=== PATIENT | male | born 1945 | race Caucasian/White ===

== ENCOUNTER 2017-12-06 14:45 | Day surgery (SDC) | payer BC ==
[2017-12-06] MEDS ORDERED: NS 500 ML IV ONE (14:46)
[2017-12-06] MEDS ORDERED: fentaNYL 100 MCG/2 ML INJ IVP ONE (14:46)
[2017-12-06] MEDS ORDERED: ATROPINE SULFATE 1 MG/10 ML SYR IVP ONE (14:46)
[2017-12-06] MEDS ORDERED: MIDAZOLAM 2 MG/2 ML VIAL IVP ONE (14:46)
[2017-12-06 15:42] LABS: INR 1.16 (0.83-1.16)
--- NOTE | 2017-12-06 15:50 | PDANEPAE ---
ANE History of Present Illness GERSON CV ANE Past Medical History - Cardiovascular History Hx Arrhythmias: Yes - Pulmonary History Hx Oxygen in Use at Home: No Hx Sleep Apnea: No - Endocrine History Hx Diabetes: No - Other Health History Other Health History: ED - Chronic Pain History Chronic Pain: No ANE Review of Systems Review of Systems: SOB with stairs ANE Patient History - Allergies Allergies/Adverse Reactions: No Known Allergies Allergy (Unverified 12/29/15 09:27) - Home Medications Home medications: home medication list seen and reviewed Home Medications: Amiodarone HCl [Pacerone (*)] 200 mg PO DAILY 12/29/15 [Last Taken 04/07/16] Aspirin [Aspirin 81mg (*)] 81 mg PO HS 12/29/15 [Last Taken 04/13/16] Atorvastatin Calcium [Lipitor 40 mg (*)] 40 mg PO HS 12/29/15 [Last Taken 2 Days Ago ~04/12/16] Tadalafil [Cialis] 20 mg PO DAILY PRN 12/29/15 [Last Taken Unknown] Apixaban [Eliquis] 5 mg PO BID 04/14/16 [Last Taken 04/11/16 21:00] Omeprazole [Prilosec 20 mg] 20 mg PO DAILY 04/14/16 [Last Taken 04/13/16] - NPO status NPO Status: no food or drink >8 hours - Anes Hx Anes Hx: no prior problems - Smoking Hx Smoking Status: Never smoked - Family Anes Hx Family Anes Hx: none ANE Labs/Vital Signs - Labs Result Diagrams: 12/06/17 15:05 - Vital Signs Vital Signs: reviewed preoperatively; see RN documention for details Height: 193.04 cm Weight: 81.647 kg ANE Physical Exam - Airway Neck exam: FROM Mallampati Score: Class 1 Mouth exam: normal dental/mouth exam - Pulmonary Pulmonary: no respiratory distress - Cardiovascular Cardiovascular: irregularly irregular - ASA Status ASA Status: III ANE Anesthesia Plan Total IV Anesthesia: Yes
--- NOTE | 2017-12-06 15:51 | POSTANESTH ---
Post Anesthetic Evaluation Cardiovascular Status: Similar to Pre-Op Cond Respiratory Status: Normal, Stable, Similar to Pre-op Cond. Level of Consciousness/Mental Status: Can Participate in Eval, Mildly Sleepy, Arousable Pain Control: Adequate, Prn Tx Ordered Nausea/Vomiting Control: Adequate, Prn Tx Ordered Complications Possibly Related to Anesthesia: None Noted
[2017-12-06] MEDS ORDERED: PROPOFOL 200 MG/20 ML VIAL ONE (15:56)
--- NOTE | 2017-12-06 16:01 | PDHPUP ---
History & Physical Update H&P update statement: This history and physical update is based on an assessment of the patient which was completed after admission or registration (within 24 hours), but prior to the surgery/procedure. H&P update: H&P reviewed & patient examined, no change in patient's condition since H&P completed
--- NOTE | 2017-12-06 16:38 | CPEKG ---
Heart Rate: 67 RR Interval: 896 P-R Interval: 160 QRSD Interval: 100 QT Interval: 436 QTC Interval: 461 P Clio: 76 QRS Clio: 110 T Wave Clio: 31 EKG Severity - ABNORMAL ECG - EKG Impression: SINUS RHYTHM EKG Impression: MULTIPLE ATRIAL PREMATURE COMPLEXES EKG Impression: LOW VOLTAGE IN FRONTAL LEADS EKG Impression: RIGHT AXIS DEVIATION Electronically Signed By: Al Tidwell 08-Dec-2017 08:19:49
--- NOTE | 2017-12-06 16:41 | PDTEE1 ---
GERSON Cardioversion Procedure Procedure: electrical cardioversion, transesophageal echo Indications: atrial fibrillation Consent: signed and in chart Anticoagulation: eliquis Procedural Details: After consents for anesthesia, GERSON, and probable cardioversion were completed, the patient was placed in the left lateral decub position. The GERSON probe was placed without difficulty and standard views were obtained. Preliminary echo report Grossly normal LVEF Biatrial dilation was noted (mild to moderate) Moderate MR Mild to moderate TR No AI or PI No thrombus to the LAE (+) ASD (known) by color flow A synchronized cardioversion at 200 J was performed with conversion from atrial fibrillation at 90-95 bpm to normal sinus rhythm at 60-65 bpm. No complications were appreciated. Would maintain medical therapy as at present Synchronized cardioversion attempt #1: 200J Results: normal sinus rhythm Conclusions: successful GERSON cardioversion Patient Problems: Problems Problem Status Onset Atrial fibrillation and flutter Acute
== END 2017-12-06 17:57 | disposition home or self-care (01) ==
LOC: FCATH 14:45
PROVIDERS: ATTEND Internal Medicine Cardiovascular Disease
PROC: B245ZZ4 Ultrasonography of Left Heart, Transesophageal (ICD-10-PCS; principal; 2017-12-06)
PROC: 5A2204Z Restoration of Cardiac Rhythm, Single (ICD-10-PCS; principal; 2017-12-06)
DX: I48.0 Paroxysmal atrial fibrillation (principal); Z79.01 Long term (current) use of anticoagulants
CPT/HCPCS: J0461; J2704